=== PATIENT | male | born 1995 | race African-American/Black ===

== ENCOUNTER 2022-12-29 10:46 | Emergency (ER) | payer OTHER ==
[2022-12-29] MEDS ORDERED: Lidocaine 1% (PF) 30 ML VIAL ONE (11:13)
[2022-12-29] MEDS ORDERED: cefTRIAXone (ROCEPHIN) 500 MG VIAL ONE (11:13)
[2022-12-29] MEDS ORDERED: Doxycycline 100 MG CAP ONE (11:19)
[2022-12-30 01:29] LABS: Chlam.trachomatis by PCR,Urine Not Detected (NotDetected); GC N.gonorrhoeae PCR,UrineVOID Not Detected (NotDetected)
== END 2022-12-29 11:36 | disposition home or self-care (01) ==
LOC: NAV ERS 10:46
DX: Z20.2 Contact with and (suspected) exposure to infections with a predominantly sexual mode of transmission (principal)
CPT/HCPCS: 87491; 87591; 96372; 99283; J0696; J2001

== ENCOUNTER 2023-03-10 01:07 | Emergency (ER) | payer OTHER, SELFPAY ==
[2023-03-10 01:21] LABS: Bilirubin Negative (Negative); Blood, Urine Negative (Negative); Clarity Clear (Clear); Glucose, Urine (Dipstick) Negative (Negative); Ketone, Urine Negative (Negative); Leukocyte Negative (Negative); Nitrite Negative (Negative); Protein, Urine (Dipstick) Negative (Neg-Trace); Specific Gravity, Urine 1.028 (1.002-1.036); Urobilinogen 0.2 mg/dL (Less than 2); pH, Urine 5.5 (5.0-9.0)
[2023-03-10 01:22] LABS: Bacteria/HPF None Seen HPF (None Seen); CAUTI Indications for Culture Dysuria,urgency,freq; RBC/HPF None Seen HPF (0-3); Squamous Epithelial None Seen HPF (0-3); Urine Culture Reflex No No; WBC/HPF None Seen HPF (0-3)
[2023-03-10] MEDS ORDERED: cefTRIAXone (ROCEPHIN) 250 MG VIAL ONE (01:31)
[2023-03-10] MEDS ORDERED: Doxycycline 100 MG CAP ONE (01:31)
[2023-03-10 17:30] LABS: Chlam.trachomatis by PCR,Urine Not Detected (NotDetected); GC N.gonorrhoeae PCR,UrineVOID Not Detected (NotDetected)
== END 2023-03-10 01:55 | disposition home or self-care (01) ==
LOC: NAV ERS 01:07
DX: R30.0 Dysuria (principal)
CPT/HCPCS: 81001; 87491; 87591; 96372; 99283; J0696